=== PATIENT | male | born 1995 | race Two or more races ===

== ENCOUNTER 2020-07-09 19:44 | Emergency (ER) | payer OTHER ==
[2020-07-09] MEDS ORDERED: DEXAMETHASONE SOD PHOS INJ 10 MG/1 ML VIAL IV ONE ×2 (20:13→23:52)
--- NOTE | 2020-07-09 20:13 | ER Document Report ---
ED Medical Screen (RME) - General Chief Complaint: Sore Throat Stated Complaint: SORE THROAT Time Seen by Provider: 07/09/20 20:07 Mode of Arrival: Ambulatory Information source: Patient Notes: HPI; 24-year-old male presents to the emergency room complaining of painful swallowing off and on for the past 2 weeks. He states at times his throat feels tight. States is able to swallow but is painful. He denies any fevers. He noticed some swelling to the right side of his neck the past 2 days. No medications for symptoms. No fevers. No shortness of breath or difficulty breathing. No COVID-19 exposure. PE: Alert and oriented x3. Lungs: Clear to auscultation without rales, rhonchi, wheezes. Heart: Regular rate rhythm without murmurs, rubs, gallops. Posterior pharyngeal erythema. Right-sided cervical anterior lymphadenopathy that is tender to palpation. I have greeted and performed a rapid initial assessment of this patient. A comprehensive ED assessment and evaluation of the patient, analysis of test results and completion of the medical decision making process will be conducted by additional ED providers. I have specifically instructed the patient or family members with the patient to immediately return to any nursing staff should anything change in the patient's condition or with their chief complaint. TRAVEL OUTSIDE OF THE [place] IN LAST 30 DAYS: No Physical Exam - Vital signs Vitals: Temp Pulse Resp BP Pulse Ox 98.3 F 73 16 147/84 H 100 07/09/20 19:59 07/09/20 19:59 07/09/20 19:59 07/09/20 19:59 07/09/20 19:59 Course - Vital Signs Vital signs: Temp Pulse Resp BP Pulse Ox 98.3 F 73 16 147/84 H 100 07/09/20 19:59 07/09/20 19:59 07/09/20 19:59 07/09/20 19:59 07/09/20 19:59
[2020-07-09 21:08] LABS: ABSOLUTE EOSINOPHILS # (AUTO) 0.2 10^3/uL (0.0-0.6); ABSOLUTE LYMPHOCYTES (AUTO) 2.1 10^3/uL (0.5-4.7); ABSOLUTE MONOCYTES (AUTO) 0.6 10^3/uL (0.1-1.4); ABSOLUTE NEUT (AUTO) 4.5 10^3/uL (1.7-8.2); BASOPHILS % (AUTO) 0.3 % (0-2); EOSINOPHILS % (AUTO) 2.2 % (0-6); HEMATOCRIT 41.2 % (37.9-51.0); HEMOGLOBIN 14.8 g/dL (13.5-17.0); LYMPHOCYTES % (AUTO) 28.4 % (13-45); MEAN CORPUSCULAR HEMOGLOBIN 28.4 pg (27.0-33.4); MEAN CORPUSCULAR HGB CONC 35.9 g/dL (32.0-36.0); MEAN CORPUSCULAR VOLUME 79 fl (80-97); MONOCYTES % (AUTO) 8.4 % (3-13); PLATELET COUNT 239 10^3/uL (150-450); RED BLOOD COUNT 5.19 10^6/uL (4.35-5.55); RED CELL DISTRIBUTION WIDTH 12.7 % (11.5-14.0); SEGMENTED NEUTROPHILS % (AUTO) 60.7 % (42-78); TOTAL CELLS COUNTED % (AUTO) 100 %; WHITE BLOOD COUNT 7.5 10^3/uL (4.0-10.5)
[2020-07-09 21:13] LABS: ALBUMIN 4.6 g/dL (3.5-5.0); ALKALINE PHOSPHATASE 100 U/L (38-126); ANION GAP 7 (5-19); ASPARTATE AMINO TRANSFERASE 38 U/L (17-59); BILIRUBIN,DIRECT 0.2 mg/dL (0.0-0.4); BILIRUBIN,TOTAL 0.5 mg/dL (0.2-1.3); BLOOD UREA NITROGEN 16 mg/dL (7-20); CALCIUM 9.9 mg/dL (8.4-10.2); CARBON DIOXIDE 30 mmol/L (22-30); CHLORIDE 101 mmol/L (98-107); GLUCOSE 105 mg/dL (75-110); POTASSIUM 4.4 mmol/L (3.6-5.0); TOTAL PROTEIN 7.7 g/dL (6.3-8.2)
[2020-07-09] MEDS ORDERED: KETOROLAC TROMETHAMINE INJ/PF 30 MG/1 ML SDV IV ONE (23:52)
--- NOTE | 2020-07-10 00:22 | RADIOLOGY REPORT (SQ) ---
EXAM DESCRIPTION: CT SOFT TISSUE NECK WITH CLINICAL HISTORY: 24 years Male difficulty swallowing TECHNIQUE: Soft tissue protocol CT of the neck using intravenous contrast.. All CT scans at this facility use dose modulation, iterative reconstruction, and/or weight based dosing when appropriate to reduce radiation dose to as low as reasonably achievable. COMPARISON: None. FINDINGS: Sinuses: Minimal mucous retention cyst is present in the left maxillary sinus. No air-fluid levels. No acute or chronic sinusitis. The mastoid air cells are aerated. Soft tissues: Soft tissues of the face and neck are unremarkable. Salivary glands: Within normal limits. Pharynx: Epiglottis is normal. No airway compromise. No suspicious enhancing lesions. Mucosal surfaces are symmetric. The esophagus appears normal. No radiopaque foreign body is seen in the airway. Nodes: No cervical adenopathy. Bones: No acute bone findings. Vascular: Within normal limits. Thyroid: Within normal limits. Lung apices are clear. IMPRESSION: Unremarkable soft tissue neck CT. No acute process.
[2020-07-10 01:17] VITALS: BP 120/72
--- NOTE | 2020-07-10 01:45 | ER Document Report ---
ED General - General Chief Complaint: Sore Throat Stated Complaint: SORE THROAT Time Seen by Provider: 07/09/20 20:07 Mode of Arrival: Ambulatory Notes: Patient presents to the ER for evaluation of sore throat for approximately 2 weeks. The patient states he feels as though there is something swollen on the right side of his neck. He states he is able to swallow but that he feels it is, at times, difficult. He denies fever. He denies nausea or vomiting. He denies cough or congestion. He denies shortness of breath. Nursing notes reviewed and past medical, social, and family histories reviewed and validated. TRAVEL OUTSIDE OF THE [place] IN LAST 30 DAYS: No Past Medical History - General Information source: Patient - Social History Smoking Status: Never Smoker Chew tobacco use (# tins/day): No Frequency of alcohol use: None Drug Abuse: None Lives with: Alone Family History: Reviewed & Not Pertinent Patient has suicidal ideation: No Patient has homicidal ideation: No - Past Medical History Cardiac Medical History: Reports: None Pulmonary Medical History: Reports: None EENT Medical History: Reports: None Neurological Medical History: Reports: None Endocrine Medical History: Reports: None Renal/ Medical History: Reports: None Malignancy Medical History: Reports None GI Medical History: Reports: None Musculoskeletal Medical History: Reports None Skin Medical History: Reports None Psychiatric Medical History: Reports: None Traumatic Medical History: Reports: None Infectious Medical History: Reports: None Past Surgical History: Reports: None - Immunizations Immunizations up to date: Yes Hx Diphtheria, Pertussis, Tetanus Vaccination: Yes Review of Systems - Review of Systems Notes: Constitutional: Negative for fever. HENT: Positive for sore throat. Eyes: Negative for visual changes. Cardiovascular: Negative for chest pain. Respiratory: Negative for shortness of breath. Gastrointestinal: Negative for abdominal pain, vomiting or diarrhea. Genitourinary: Negative for dysuria. Musculoskeletal: Negative for back pain. Skin: Negative for rash. Neurological: Negative for headaches, weakness or numbness. 10 point ROS negative except as marked above and in HPI. Physical Exam - Vital signs Vitals: Temp Pulse Resp BP Pulse Ox 98.3 F 73 16 147/84 H 100 07/09/20 19:59 07/09/20 19:59 07/09/20 19:59 07/09/20 19:59 07/09/20 19:59 - Notes Notes: CONSTITUTIONAL: Well appearing in no acute distress. SKIN: Warm, dry, and intact without rash EYES: Extraocular movements are grossly intact, clear conjunctiva HENT: Normocephalic, atraumatic, moist mucus membranes NECK: No obvious swelling, normal range of motion. There is anterior cervical lymphadenopathy noted. PULMONARY: Normal chest rise and fall, no respiratory distress or stridor. Breath sounds clear and equal bilaterally. CARDIOVASCULAR: Regular rate, distal extremities are warm and well perfused NEUROLOGIC: Normal speech, moves all extremities MUSCULOSKELETAL: No gross deformities, atraumatic PSYCHIATRIC: Normal mood and affect Course - Re-evaluation Re-evalutation: 07/10/20 02:11 Rechecked patient who has responded well to treatment in the ER. Discussed with patient: results, diagnosis, treatment plan, and need for follow-up. Return to the emergency department warnings were given. All questions and concerns were addressed. The plan is agreed with and understood. Patient is stable and ready for discharge. - Vital Signs Vital signs: Temp Pulse Resp BP Pulse Ox 97.5 F 72 16 120/72 97 07/10/20 01:15 07/10/20 01:15 07/10/20 01:15 07/10/20 01:15 07/10/20 01:15 - Laboratory Results Result Diagrams: 07/09/20 20:45 07/09/20 20:45 Laboratory Results Interpreted: 07/09/20 07/09/20 20:45 20:45 MCV 79 L ALT 59 H Critical Laboratory Results Reviewed: No Critical Results - Radiology Results Critical Radiology Results Reviewed: No Critical Results Discharge - Discharge Clinical Impression: Acute pharyngitis Qualifiers: Pharyngitis/tonsillitis etiology: unspecified etiology Qualified Code(s): J02.9 - Acute pharyngitis, unspecified Condition: Stable Disposition: HOME, SELF-CARE Instructions: Sore Throat ([facility]) Prescriptions: Ketorolac Tromethamine [Toradol 10 mg Tablet] 10 mg PO Q8HP PRN #12 tablet PRN Reason: For Pain Amoxicillin 1 tab PO TID 10 Days #30 tab Prednisone 10 mg PO DAILY 6 Days #1 pkg
== END 2020-07-10 01:54 | disposition home or self-care (01) ==
LOC: ER 19:44
DX: J02.9 Acute pharyngitis, unspecified (principal); R13.10 Dysphagia, unspecified; R59.0 Localized enlarged lymph nodes
CPT/HCPCS: 99285; 96374; 96375; 36415; 87070; 87880; 85025; 80053; 70491; J1885; J1100